=== PATIENT | male | born 1950 | race Caucasian/White ===

== ENCOUNTER 2022-05-27 04:18 | Inpatient (IN) | payer MEDICARE, OTHER ==
[~2022-05-27] VITALS: Ht 182.9 cm; Wt 176.7 kg
[2022-05-27] MEDS ORDERED: DEXTROSE (50%) 50ML SYRG IV ONE ×2 (04:30→04:45)
[2022-05-27] MEDS ORDERED: ACCU-CHEK COMFORT CURVE STRIP VI ONE ×2 (04:30→04:45)
[2022-05-27 05:00] LABS: Basophils # (auto) 0 10 ^3/uL (0-0.2); Basophils % (auto) 0.4 % (0.0-2.0); Eosinophils # (auto) 0.1 10 ^3/uL (0-0.8); Eosinophils % (auto) 0.8 % (0.0-7.0); Mean Corpuscular Hemoglobin 25.3 pg (28.0-32.0); Monocytes # (auto) 0.9 10 ^3/uL (0-1.3); Red Cell Distribution Width 16.3 % (11.8-14.3); White Blood Cell 11.1 10^3/uL (4.4-10.8)
[2022-05-27 05:04] LABS: Hematocrit 32.6 % (41.0-53.0); Hemoglobin 10.4 g/dL (13.5-17.5); Lymphocytes % (auto) 9.4 % (10.0-50.0); Monocytes % (auto) 7.8 % (0.0-12.0); Neutrophils % (auto) 81.6 % (37.0-80.0); Red Blood Cells 4.13 10^6/uL (4.5-5.90)
[2022-05-27 05:23] LABS: Albumin 3.2 g/dL (3.4-5.0); Calcium 8.8 mg/dL (8.5-10.1); Potassium 4.6 mmol/L (3.5-5.1)
[2022-05-27 05:27] LABS: BUN/Creatinine Ratio 19.4; Bilirubin, Total 0.2 mg/dL (0.2-1.0); Total Protein 7.2 g/dL (6.4-8.2)
[2022-05-27] MEDS ORDERED: DEXTROSE 10% 1,000 ML IV ONE (06:30)
[2022-05-27] MEDS ORDERED: MORPHINE SULFATE INJ 2 MG/ml SYRG IV PRN (10:00)
[2022-05-27] MEDS ORDERED: NITROGLYCERIN 0.4 MG SL TAB SL PRN (10:00)
[2022-05-27] MEDS ORDERED: hydrALAZINE HCL 20 MG/ML VL IV PRN (10:00)
[2022-05-27] MEDS ORDERED: DEXTROSE (50%) 50ML SYRG IV PRN (10:00)
[2022-05-27 10:33] LABS: Cholesterol 104 mg/dL (< 200); HDL Cholesterol 43 mg/dL (40-59); LDL Cholesterol 56 mg/dL (< 100); Triglycerides 63 mg/dL (< 150)
[2022-05-27] MEDS: ACCU-CHEK COMFORT CURVE STRIP VI SCH ×13 (10:56→23:05)
[2022-05-27] MEDS ORDERED: cefTRIAXone 1GM/50ML D5W 50 ML IV ONE (11:30)
[2022-05-27] MEDS: ENOXAPARIN SOD 40 MG/0.4 ML SYRINGE SC SCH (11:54)
[2022-05-27] MEDS: CLINDAMYCIN 300MG IV 50 ML IV SCH ×2 (17:20→22:00)
[2022-05-27] MEDS ORDERED: CHOL20007 PO (18:41)
[2022-05-27] MEDS ORDERED: GABA300C10 PO (18:41)
[2022-05-27] MEDS ORDERED: ESOM40CA39 PO (18:41)
[2022-05-27] MEDS ORDERED: LOSA25TA38 PO (18:41)
[2022-05-27] MEDS ORDERED: SERT50TA19 PO (18:41)
[2022-05-27] MEDS ORDERED: METF-372 PO (18:41)
[2022-05-27] MEDS ORDERED: ASPI-543 PO (18:41)
[2022-05-27] MEDS ORDERED: PRA1C PO (18:41)
[2022-05-27] MEDS ORDERED: FURO40TA4 PO (18:41)
[2022-05-27] MEDS ORDERED: NORT25CA PO (18:41)
[2022-05-27] MEDS ORDERED: ATOR80TA PO (18:41)
[2022-05-27] MEDS ORDERED: GABA-339 PO (18:41)
[2022-05-27] MEDS ORDERED: LEVO100T8 PO (18:41)
[2022-05-27 22:05] VITALS: BP 126/96
[2022-05-27 23:40] VITALS: BP 151/70
[2022-05-27] MEDS: NORTRIPTYLINE HCL 10 MG CAP PO SCH (23:45)
[2022-05-27 23:55] VITALS: BP 126/96
[2022-05-28] MEDS: ACCU-CHEK COMFORT CURVE STRIP VI SCH ×7 (00:04→22:00)
[2022-05-28] MEDS: GABAPENTIN 300 MG CAP PO SCH ×5 (00:04→22:32)
[2022-05-28] MEDS ORDERED: DEXTROSE 10% 1,000 ML IV ONE (00:45)
[2022-05-28] MEDS ORDERED: TEMAZEPAM 15 MG CAP PO ONE (00:45)
[2022-05-28] MEDS ORDERED: ACCU-CHEK COMFORT CURVE STRIP VI SCH ×3 (06:00→12:00)
[2022-05-28] MEDS: CLINDAMYCIN 300MG IV 50 ML IV SCH ×3 (06:22→22:32)
[2022-05-28 06:30] LABS: Basophils # (auto) 0.1 10 ^3/uL (0-0.2); Basophils % (auto) 0.6 % (0.0-2.0); Eosinophils # (auto) 0.3 10 ^3/uL (0-0.8); Eosinophils % (auto) 2.2 % (0.0-7.0); Hematocrit 37.2 % (41.0-53.0); Hemoglobin 11.8 g/dL (13.5-17.5); Lymphocytes % (auto) 8.4 % (10.0-50.0); Mean Corpuscular Hemoglobin 25.2 pg (28.0-32.0); Mean Corpuscular Hgb Conc. 31.7 g/dL (32.0-36.0); Mean Corpuscular Volume 79.3 fL (80.0-100.0); Monocytes # (auto) 1.2 10 ^3/uL (0-1.3); Monocytes % (auto) 10.2 % (0.0-12.0); Neutrophils # (auto) 9.2 10 ^3/uL (1.6-8.6); Neutrophils % (auto) 78.6 % (37.0-80.0); Red Blood Cells 4.69 10^6/uL (4.5-5.90); Red Cell Distribution Width 16.5 % (11.8-14.3); White Blood Cell 11.6 10^3/uL (4.4-10.8)
[2022-05-28 06:43] LABS: Albumin 3.3 g/dL (3.4-5.0); Calcium 9.3 mg/dL (8.5-10.1); Potassium 4.4 mmol/L (3.5-5.1)
[2022-05-28 06:46] LABS: Bilirubin, Total 0.5 mg/dL (0.2-1.0); Total Protein 8.2 g/dL (6.4-8.2)
[2022-05-28] MEDS ORDERED: DEXTROSE (50%) 50ML SYRG IV PRN ×3 (08:30→10:15)
[2022-05-28] MEDS: cefTRIAXone 1GM/50ML D5W 50 ML IV SCH (09:26)
[2022-05-28] MEDS: ENOXAPARIN SOD 40 MG/0.4 ML SYRINGE SC SCH (10:18)
[2022-05-28] MEDS ORDERED: InsuLIN REG 1unit/0.01ml Soln (100units/ml) SC SCH (12:00)
[2022-05-28] MEDS: InsuLIN REG 1unit/0.01ml Soln (100units/ml) SC SCH ×3 (12:16→23:02)
[2022-05-28 13:00] VITALS: BP 134/58
[2022-05-28 13:30] VITALS: BP 134/58
[2022-05-28 17:00] VITALS: BP 165/82
[2022-05-28 21:40] VITALS: BP 106/52
[2022-05-28] MEDS: NORTRIPTYLINE HCL 10 MG CAP PO SCH ×2 (22:32→22:35)
[2022-05-29 04:37] VITALS: BP 142/82
[2022-05-29] MEDS: CLINDAMYCIN 300MG IV 50 ML IV SCH (05:51)
[2022-05-29] MEDS: GABAPENTIN 300 MG CAP PO SCH ×2 (05:51→12:08)
[2022-05-29] MEDS: ACCU-CHEK COMFORT CURVE STRIP VI SCH ×2 (06:35→12:10)
[2022-05-29] MEDS: InsuLIN REG 1unit/0.01ml Soln (100units/ml) SC SCH ×2 (06:36→12:10)
[2022-05-29 08:26] VITALS: BP 146/80
[2022-05-29 08:57] VITALS: BP 163/89
[2022-05-29] MEDS: cefTRIAXone 1GM/50ML D5W 50 ML IV SCH (09:35)
[2022-05-29] MEDS: ENOXAPARIN SOD 40 MG/0.4 ML SYRINGE SC SCH (09:35)
[2022-05-29 12:37] VITALS: BP 135/70
== END 2022-05-29 13:55 | disposition home or self-care (01) | DRG 637 ==
LOC: ER 04:18 → EDBD 04:18 → TELE 10:05 → TELE-CENTR 05-28 11:13
PROVIDERS: ADMIT Registered Nurse; ATTEND Family Medicine
PROC: 05HF33Z Insertion of Infusion Device into Left Cephalic Vein, Percutaneous Approach (ICD-10-PCS; principal; 2022-05-27)
DX: E11.649 Type 2 diabetes mellitus with hypoglycemia without coma (principal); G93.41 Metabolic encephalopathy; L03.115 Cellulitis of right lower limb; L03.116 Cellulitis of left lower limb; Z68.45 Body mass index [BMI] 70 or greater, adult; E66.01 Morbid (severe) obesity due to excess calories; I10 Essential (primary) hypertension; Z20.822 Contact with and (suspected) exposure to COVID-19; M19.90 Unspecified osteoarthritis, unspecified site; E78.00 Pure hypercholesterolemia, unspecified; Z86.718 Personal history of other venous thrombosis and embolism; Z79.4 Long term (current) use of insulin
CPT/HCPCS: 36415; 70450; 71045; 73502; 80053; 80061; 82962; 83036; 83880; 84484; 85025; 87040; 87081; 93005; 93306; 93886; 93970; 94660; 96361; 96374; 96376; 99291; G0378; J0696; J1815; J3490